=== PATIENT | female | born 1965 | race Two or more races ===

== ENCOUNTER → 2017-08-26 | Outpatient (CLI) | payer OTHER ==
[~2017-08-26] MED LIST: ACID CONTROL150 MG PO; ANAPROX275 MG PO; PERCOCET 5/321 UDTAB PO; PROTONIX40 MG PO
== END | disposition home or self-care (01) ==
LOC: TOM 07:15
DX: Z12.11 Encounter for screening for malignant neoplasm of colon (principal)

== ENCOUNTER → 2024-02-15 09:47 | Outpatient (CLI) | payer OTHER | END | disposition home or self-care (01) | LOC: NUCLEAR 09:00 | PROVIDERS: ATTEND Internal Medicine | DX: I10 Essential (primary) hypertension (principal); R07.9 Chest pain, unspecified ==

== ENCOUNTER 2024-02-29 07:19 | Outpatient (CLI) | payer OTHER | END 2024-02-29 07:20 | disposition home or self-care (01) | LOC: NUCLEAR 07:19 | PROVIDERS: ATTEND Internal Medicine | DX: I10 Essential (primary) hypertension (principal); R07.9 Chest pain, unspecified; G35 Multiple sclerosis ==